=== PATIENT | female | born 1980 | race Caucasian/White ===

== ENCOUNTER 2016-10-19 13:57 | Emergency (ER) | payer OTHER ==
--- NOTE | 2016-10-19 14:01 | ER Document Report ---
ED Medical Screen (RME) - General Stated Complaint: SHOULDER INJURY Notes: 36 yo female c/o right shoulder pain. felt like it dislocated while she was lifting a case of pepsi. no previous injury
--- NOTE | 2016-10-19 16:57 | ER Document Report ---
ED General - General Chief Complaint: Shoulder Injury Stated Complaint: SHOULDER INJURY TRAVEL OUTSIDE OF THE [place] 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 that she felt a pop in her right shoulder was unable to move her shoulder intense pain came to the ER further evaluation by my evaluation patient is still holding her right shoulder states that she does still not pop when she was in x-ray and states pain decreased - Related Data Allergies/Adverse Reactions: No Known Allergies Allergy (Unverified 10/19/16 14:01) Past Medical History - Social History Smoking Status: Never Smoker Chew tobacco use (# tins/day): No Frequency of alcohol use: None Drug Abuse: None Family History: Reviewed & Not Pertinent Patient has suicidal ideation: No Patient has homicidal ideation: No Renal/ Medical History: Denies: Hx Peritoneal Dialysis Surgical Hx: Negative Review of Systems - Review of Systems Constitutional: No symptoms reported EENT: No symptoms reported Cardiovascular: No symptoms reported Respiratory: No symptoms reported Gastrointestinal: No symptoms reported Genitourinary: No symptoms reported Female Genitourinary: No symptoms reported Musculoskeletal: Other - Right shoulder Skin: No symptoms reported Hematologic/Lymphatic: No symptoms reported Neurological/Psychological: No symptoms reported Physical Exam - Vital signs Interpretation: Normal - General General appearance: Appears well, Alert - HEENT Head: Normocephalic, Atraumatic Eyes: Normal Pupils: PERRL - Respiratory Respiratory status: No respiratory distress Chest status: Nontender Breath sounds: Normal Chest palpation: Normal - Cardiovascular Rhythm: Regular Heart sounds: Normal auscultation Murmur: No - Abdominal Inspection: Normal Distension: No distension Bowel sounds: Normal Tenderness: Nontender Organomegaly: No organomegaly - Back Back: Normal, Nontender - Extremities General upper extremity: Normal inspection, Nontender, Normal color, Normal ROM , Normal temperature General lower extremity: Normal inspection, Nontender, Normal color, Normal ROM , Normal temperature, Normal weight bearing. No: Pavithra's sign - Neurological Neuro grossly intact: Yes Cognition: Normal Orientation: AAOx4 [place] Coma Scale Eye Opening: Spontaneous [place] Coma Scale Verbal: Oriented [place] Coma Scale Motor: Obeys Commands [place] Coma Scale Total: 15 Speech: Normal Motor strength normal: LUE, RUE, LLE, RLE Sensory: Normal - Psychological Associated symptoms: Normal affect, Normal mood - Skin Skin Temperature: Warm Skin Moisture: Dry Skin Color: Normal Course - Re-evaluation Re-evalutation: 10/19/16 20:30 X-rays normal examination of the right shoulder now is normal. Explained patient more likely showed possible subluxation or possible dislocation patient will be discharged home Discharge - Discharge Clinical Impression: Right shoulder injury Qualifiers: Encounter type: initial encounter Qualified Code(s): S49.91XA - Unspecified injury of right shoulder and upper arm, initial encounter Condition: Good Disposition: HOME, SELF-CARE Instructions: Oral Narcotic Medication ([facility]), Shoulder Injury ([facility]), Exercise Program for the Shoulder ([facility]) Additional Instructions: Your x-ray shows no signs of fracture or dislocation. There is a possibility that she may have had a slight dislocation of her shoulder then automatically relocated the shoulder upon arrival here. Your x-ray shows nothing acute now. Please follow-up with your primary care physician. If you perform a activity and have pain please stop that activity. Prescriptions: Hydrocodone Bit/Acetaminophen [Hydrocodon-Acetaminophen 5-325] 1 each PO Q6 #14 tablet Forms: Return to Work
== END 2016-10-19 18:09 | disposition home or self-care (01) ==
LOC: ER 13:57
DX: S49.91XA Unspecified injury of right shoulder and upper arm, initial encounter (principal); X50.0XXA Overexertion from strenuous movement or load, initial encounter; Y92.512 Supermarket, store or market as the place of occurrence of the external cause; Y99.0 Civilian activity done for income or pay
CPT/HCPCS: 99283

== ENCOUNTER 2020-01-06 15:51 | Emergency (ER) | payer SELFPAY ==
[2020-01-06] MEDS ORDERED: ASPIRIN 81 MG TABLET, CHEWABLE PO ONE (16:24)
--- NOTE | 2020-01-06 16:26 | ER Document Report ---
ED Medical Screen (RME) - General Chief Complaint: Chest Pain Stated Complaint: SHOULDER PAIN/POSSIBLE PANIC ATTACK Time Seen by Provider: 01/06/20 16:17 Mode of Arrival: Ambulatory Information source: Patient Notes: HPI; 39-year-old female past medical history significant for panic attacks presents emergency room complaining of sudden onset of left shoulder pain that radiates into her neck and left side of chest, describes it as a burning tightness. Denies any trauma or injury. No medications for symptoms. No cardiac history. PE: Alert and oriented x3, mild distress noted. Teary-eyed. Lungs clear to auscultation without rales, rhonchi, or wheezes. Heart: Regular rate and rhythm without murmurs rubs or gallops. Chest nontender to palpation. I have greeted and performed a rapid initial assessment of this patient. A comprehensive ED assessment and evaluation of the patient, analysis of test results and completion of the medical decision making process will be conducted by additional ED providers. I have specifically instructed the patient or family members with the patient to immediately return to any nursing staff should anything change in the patient's condition or with their chief complaint. TRAVEL OUTSIDE OF THE [place] IN LAST 30 DAYS: No - Related Data Allergies/Adverse Reactions: No Known Allergies Allergy (Unverified 10/19/16 14:01) Past Medical History - Social History Frequency of alcohol use: Occasional Drug Abuse: None Renal/ Medical History: Denies: Hx Peritoneal Dialysis Physical Exam - Vital signs Vitals: Temp Pulse Resp BP Pulse Ox 97.8 F 74 16 153/84 H 98 01/06/20 16:04 01/06/20 16:04 01/06/20 16:04 01/06/20 16:04 01/06/20 16:04 Course - Vital Signs Vital signs: Temp Pulse Resp BP Pulse Ox 97.8 F 74 16 153/84 H 98 01/06/20 16:18 01/06/20 16:04 01/06/20 16:04 01/06/20 16:04 01/06/20 16:04
[2020-01-06 16:42] LABS: APPEARANCE,URINE CLEAR; BILIRUBIN,URINE NEGATIVE (NEGATIVE); COLOR,URINE COLORLESS; GLUCOSE, URINE NEGATIVE (NEGATIVE); KETONES,URINE NEGATIVE (NEGATIVE); LEUKOCYTE ESTERASE,URINE NEGATIVE (NEGATIVE); NITRITE,URINE NEGATIVE (NEGATIVE); PROTEIN,URINE NEGATIVE (NEGATIVE); URINE SPECIFIC GRAVITY 1.001; UROBILINOGEN,URINE NEGATIVE mg/dL (<2.0)
[2020-01-06 16:44] LABS: ABSOLUTE BASOPHILS # (AUTO) 0.1 10^3/uL (0.0-0.2); ABSOLUTE EOSINOPHILS # (AUTO) 0.2 10^3/uL (0.0-0.6); ABSOLUTE LYMPHOCYTES (AUTO) 1.7 10^3/uL (0.5-4.7); ABSOLUTE MONOCYTES (AUTO) 0.5 10^3/uL (0.1-1.4); ABSOLUTE NEUT (AUTO) 5.3 10^3/uL (1.7-8.2); BASOPHILS % (AUTO) 1.1 % (0-2); EOSINOPHILS % (AUTO) 2.5 % (0-6); HEMATOCRIT 24.1 % (36.0-47.0); MEAN CORPUSCULAR HEMOGLOBIN 15.2 pg (27.0-33.4); MEAN CORPUSCULAR HGB CONC 28.5 g/dL (32.0-36.0); MONOCYTES % (AUTO) 6.6 % (3-13); PLATELET COUNT 370 10^3/uL (150-450); RED BLOOD COUNT 4.53 10^6/uL (3.72-5.28); SEGMENTED NEUTROPHILS % (AUTO) 67.8 % (42-78); TOTAL CELLS COUNTED % (AUTO) 100 %; WHITE BLOOD COUNT 7.7 10^3/uL (4.0-10.5)
--- NOTE | 2020-01-06 16:56 | RADIOLOGY REPORT (SQ) ---
EXAM DESCRIPTION: CHEST 2 VIEWS IMAGES COMPLETED DATE/TIME: 01/06/2020 4:46 pm REASON FOR STUDY: chest pain COMPARISON: None. EXAM PARAMETERS: NUMBER OF VIEWS: two views TECHNIQUE: Digital Frontal and Lateral radiographic views of the chest acquired. RADIATION DOSE: NA LIMITATIONS: none FINDINGS: LUNGS AND PLEURA: No opacities, masses or pneumothorax. No pleural effusion. MEDIASTINUM AND HILAR STRUCTURES: No masses or contour abnormalities. HEART AND VASCULAR STRUCTURES: The heart size is at the upper limits of normal. No evidence for kasi lure. BONES: No acute findings. HARDWARE: None in the chest. OTHER: No other significant finding. IMPRESSION: 1. NO ACUTE RADIOGRAPHIC FINDING IN THE CHEST. TECHNICAL DOCUMENTATION: JOB ID: [id number] 2010 [employer]- All Rights Reserved Reading location - IP/workstation name: [email or web address]
[2020-01-06 16:58] LABS: MEAN CORPUSCULAR VOLUME 53 fl (80-97)
[2020-01-06 17:02] LABS: ANISOCYTOSIS 3+; HYPOCHROMASIA 1+; OVALOCYTES SLIGHT; PLATELET COMMENT ADEQUATE; POLYCHROMASIA SLIGHT; TEAR DROP CELLS SLIGHT
[2020-01-06 17:04] LABS: HEMOGLOBIN 6.9 g/dL (12.0-15.5)
[2020-01-06 17:05] LABS: ALBUMIN 4.5 g/dL (3.5-5.0); ALKALINE PHOSPHATASE 72 U/L (38-126); ANION GAP 7 (5-19); ASPARTATE AMINO TRANSFERASE 22 U/L (14-36); BILIRUBIN,TOTAL 0.5 mg/dL (0.2-1.3); BLOOD UREA NITROGEN 9 mg/dL (7-20); CARBON DIOXIDE 25 mmol/L (22-30); CHLORIDE 102 mmol/L (98-107); CREATINE KINASE 55 U/L (30-135); GLUCOSE 121 mg/dL (75-110); POIKILOCYTOSIS SLIGHT; POTASSIUM 3.9 mmol/L (3.6-5.0); TOTAL PROTEIN 7.4 g/dL (6.3-8.2)
--- NOTE | 2020-01-06 17:17 | ER Document Report ---
ED General - General Mode of Arrival: Ambulatory Information source: Patient TRAVEL OUTSIDE OF THE [place] IN LAST 30 DAYS: No - HPI Onset: This afternoon Onset/Duration: Sudden Quality of pain: Throbbing Severity: Moderate Pain Level: 4 Associated symptoms: Sweating. denies: Nonproductive cough, Productive cough, Nausea, Vomiting Exacerbated by: Denies Relieved by: Denies Similar symptoms previously: No Recently seen / treated by doctor: No <VERNON SHAVER - Last Filed: 01/06/20 19:18> <PRINCESS MORENO - Last Filed: 01/06/20 21:02> - General Chief Complaint: Chest Pain Stated Complaint: SHOULDER PAIN/POSSIBLE PANIC ATTACK Time Seen by Provider: 01/06/20 16:17 Notes: Patient is a 39-year-old female presenting to the emergency department chief complaint of left shoulder pain that began around 2 PM. Patient states she awakened from a nap and had severe left shoulder pain she became rather diaphoretic. Patient was concerned that she could be having a heart attack and presents to the emergency department for evaluation and treatment. Patient has no prior history has a remote family history of heart disease. Patient does report positive tobacco abuse. Patient denies travel history trauma history no nausea vomiting or diarrhea. (VERNON SHAVER) - Related Data Allergies/Adverse Reactions: No Known Allergies Allergy (Unverified 10/19/16 14:01) Past Medical History - General Information source: Patient - Social History Smoking Status: Current Every Day Smoker Cigarette use (# per day): Yes Chew tobacco use (# tins/day): No Smoking Education Provided: Yes Frequency of alcohol use: Occasional Drug Abuse: None Lives with: Family Family History: Reviewed & Not Pertinent Patient has suicidal ideation: No Patient has homicidal ideation: No Renal/ Medical History: Denies: Hx Peritoneal Dialysis <VERNON SHAVER - Last Filed: 01/06/20 19:18> Review of Systems <VERNON SHAVER - Last Filed: 01/06/20 19:18> - Review of Systems Notes: REVIEW OF SYSTEMS: CONSTITUTIONAL : Denies fever, chills, or sweats. Denies recent illness. EENT: Denies eye, ear, throat, or mouth pain or symptoms. Denies nasal or sinus congestion. CARDIOVASCULAR: Per HPI RESPIRATORY: Denies cough, cold, or chest congestion. Denies shortness of breath, difficulty breathing, or wheezing. GASTROINTESTINAL: Denies abdominal pain. Denies nausea, vomiting, or diarrhea. Denies constipation. GENITOURINARY: Denies difficulty urinating, painful urination, burning, frequency, or blood in urine. MUSCULOSKELETAL: Denies neck or back pain or joint pain or swelling. SKIN: Denies rash or skin lesions. HEMATOLOGIC : Denies easy bruising or bleeding. NEUROLOGICAL: Denies altered mental status or loss of consciousness. Denies headache. Denies weakness or paralysis or loss of use of either side. Denies problems with gait or speech. Denies sensory or motor loss. PSYCHIATRIC: Denies suicidal or homicidal ideations 10 Systems are negative unless otherwise specified above (VERNON SHAVER) Physical Exam <VERNON SHAVER - Last Filed: 01/06/20 19:18> - Vital signs Vitals: Temp Pulse Resp BP Pulse Ox 97.8 F 74 16 153/84 H 98 01/06/20 16:04 01/06/20 16:04 01/06/20 16:04 01/06/20 16:04 01/06/20 16:04 - Notes Notes: PHYSICAL EXAMINATION: GENERAL: Well-appearing, well-nourished and in no acute distress. HEAD: Atraumatic, normocephalic. EYES: Pupils equal round and reactive to light, extraocular movements intact, sclera anicteric, conjunctiva are normal. ENT: nares patent, oropharynx clear without exudates. Moist mucous membranes. NECK: Normal range of motion, supple without lymphadenopathy, no appreciable JVD LUNGS: Lungs clear to auscultation bilaterally and equal. No wheezes rales or rhonchi. HEART: Regular rate and rhythm without murmurs ABDOMEN: Soft, nontender, normal bowel sounds. No guarding, no rebound. No masses appreciated. EXTREMITIES: Active full range of motion, no pitting or edema. No cyanosis. 2+ pulses x4 NEUROLOGICAL: No focal neurological deficits. Moves all extremities spontaneously and on command. However patient is anxious. SKIN: Warm, Dry, and intact. Normal turgor, no rashes or lesions noted. (VERNON SHAVER) Course - Laboratory Result Diagrams: 01/06/20 18:00 01/06/20 16:29 - Diagnostic Test Radiology reviewed: Reports reviewed - EKG Interpretation by [facility] EKG shows normal: Sinus rhythm Rate: Normal Rhythm: NSR [place]/QRS: Left axis deviation When compared to previous EKG there are: Previous EKG unavailable <VERNON SHAVER - Last Filed: 01/06/20 19:18> - Laboratory Result Diagrams: 01/06/20 18:00 01/06/20 16:29 <MORENOPRINCESS - Last Filed: 01/06/20 21:02> - Re-evaluation Re-evalutation: 01/06/20 19:18 Patient has remained stable while in emergency department. I did discuss the laboratory and radiologic as well as EKG results with the patient only significant finding at this time is that the patient is significantly anemic. Patient's hemoglobin initially was 6.9 confirmed is 7.0. Guaiac demonstrated no positive findings per rectum. I believe most of the patient's problem may be secondary to her menstrual cycle. Patient has been typed and screened and 2 units of packed red cells has been requested. Patient will be signed out to oncoming physician. (VERNON SHAVER) 01/06/20 20:52 The patient was signed out to me at shift change. The patient came to the ER for off and on left shoulder and left chest pains. Her initial Trop was 0.1 but repeat Trop was 1.4. Patient had 2 units of blood ordered but the blood transfusion still had not happened prior to second Trop being drawn. Patient was told about her lab values and rising Troponin. I consulted Dr. Pollack of Cardiology and although he feels the elevated Troponin could be due to her significant Anemia, he is concerned about significant Troponin rise and would prefer the patient be transferred to facility with Cath Capability since the patient has been having off and on chest pains. Plan to transfuse patient 2 units of blood and transfer to [facility]. (JOSHPRINCESS Young) - Vital Signs Vital signs: Temp Pulse Resp BP Pulse Ox 97.8 F 74 14 158/81 H 99 01/06/20 16:18 01/06/20 16:04 01/06/20 18:01 01/06/20 18:01 01/06/20 18:01 - Laboratory Laboratory results interpreted by me: 01/06/20 01/06/20 01/06/20 16:09 16:29 16:29 Hgb 6.9 L Hct 24.1 L MCV 53 L MCH 15.2 L MCHC 28.5 L RDW 22.0 H Sodium 134.3 L Creatinine 0.50 L Glucose 121 H Urine Blood SMALL H Crossmatch 01/06/20 01/06/20 18:00 19:23 Hgb 7.0 L Hct 24.4 L MCV 54 L MCH 15.3 L MCHC 28.6 L RDW 21.7 H Sodium Creatinine Glucose Urine Blood Crossmatch See Detail Discharge <VERNON SHAVER - Last Filed: 01/06/20 19:18> <PRINCESS MORENO - Last Filed: 01/06/20 21:02> - Discharge Clinical Impression: NSTEMI (non-ST elevated myocardial infarction) Left shoulder pain Qualifiers: Chronicity: acute Qualified Code(s): M25.512 - Pain in left shoulder Anemia Qualifiers: Anemia type: iron deficiency Iron deficiency anemia type: chronic blood loss Qualified Code(s): D50.0 - Iron deficiency anemia secondary to blood loss (chronic) Condition: Stable Disposition: [facility]
[2020-01-06 18:38] LABS: ABSOLUTE BASOPHILS # (AUTO) 0.1 10^3/uL (0.0-0.2); ABSOLUTE EOSINOPHILS # (AUTO) 0.2 10^3/uL (0.0-0.6); ABSOLUTE LYMPHOCYTES (AUTO) 2.2 10^3/uL (0.5-4.7); ABSOLUTE MONOCYTES (AUTO) 0.4 10^3/uL (0.1-1.4); ABSOLUTE NEUT (AUTO) 5.2 10^3/uL (1.7-8.2); BASOPHILS % (AUTO) 0.9 % (0-2); EOSINOPHILS % (AUTO) 2.5 % (0-6); HEMATOCRIT 24.4 % (36.0-47.0); LYMPHOCYTES % (AUTO) 26.9 % (13-45); MEAN CORPUSCULAR HEMOGLOBIN 15.3 pg (27.0-33.4); MEAN CORPUSCULAR HGB CONC 28.6 g/dL (32.0-36.0); MEAN CORPUSCULAR VOLUME 54 fl (80-97); MONOCYTES % (AUTO) 5.2 % (3-13); PLATELET COUNT 385 10^3/uL (150-450); RED BLOOD COUNT 4.56 10^6/uL (3.72-5.28); RED CELL DISTRIBUTION WIDTH 21.7 % (11.5-14.0); SEGMENTED NEUTROPHILS % (AUTO) 64.5 % (42-78); TOTAL CELLS COUNTED % (AUTO) 100 %
[2020-01-06 18:50] LABS: CREATINE KINASE MB 1.19 ng/mL (<4.55)
[2020-01-06 18:52] LABS: TROPONIN I 0.109 ng/mL
[2020-01-06 18:54] LABS: ANISOCYTOSIS 3+; HYPOCHROMASIA 2+; OVALOCYTES SLIGHT; PLATELET COMMENT ADEQUATE; POIKILOCYTOSIS SLIGHT; POLYCHROMASIA SLIGHT; TEAR DROP CELLS SLIGHT
[2020-01-06] MEDS ORDERED: NORMAL SALINE 250 ML IV PRN ×2 (19:15)
[2020-01-06 22:11] VITALS: BP 139/77
--- NOTE | 2020-01-06 23:43 | EKG REPORT ---
SEVERITY:- OTHERWISE NORMAL ECG - SINUS RHYTHM LEFT AXIS DEVIATION : Confirmed by: Noemi Frias MD 06-Jan-2020 23:42:31
--- NOTE | 2020-01-06 23:43 | EKG REPORT ---
SEVERITY:- OTHERWISE NORMAL ECG - SINUS RHYTHM BORDERLINE LEFT AXIS DEVIATION : Confirmed by: Noemi Frias MD 06-Jan-2020 23:42:36
[2020-01-07 13:13] LABS: PATH REVIEW PATHOLOGIST REVIEWED
== END 2020-01-06 22:20 | disposition short-term general hospital (02) ==
LOC: ER 15:51
DX: I21.4 Non-ST elevation (NSTEMI) myocardial infarction (principal); M25.512 Pain in left shoulder; D50.0 Iron deficiency anemia secondary to blood loss (chronic); R07.9 Chest pain, unspecified; R61 Generalized hyperhidrosis; F17.210 Nicotine dependence, cigarettes, uncomplicated
CPT/HCPCS: 93005; 99291; 86900; 86901; 36415; 82553; 36430; 86850; 82550; 84703; 85025; 82270; 81025; 80053; 81001; 84484; 86920; 71046; 93010; P9016